=== PATIENT | male | born 1975 | race Caucasian/White ===

== ENCOUNTER → 2018-02-04 12:10 | Outpatient (CLI) | payer BC, SELFPAY ==
[2018-02-04 13:37] LABS: Hemoglobin A1C 6.2 % (0.0-7.0)
[2018-02-04 13:50] LABS: Alanine Aminotransferase 31 U/L (12-78); Albumin Level 4.1 gm/dL (3.4-5.0); Albumin/Globulin Ratio 1.3 (1.1-1.8); Alkaline Phosphatase 84 U/L (46-116); Anion Gap 9.9 mEq/L (5-15); Bilirubin,Total 0.8 mg/dL (0.2-1.0); Blood Urea Nitrogen 5 mg/dL (7-18); Calcium 9.2 mg/dL (8.5-10.1); Carbon Dioxide 32 mmol/L (21.0-32.0); Chloride 102 mmol/L (98-107); Chol/HDL Ratio 5.3 (1-3.5); Cholesterol 203 mg/dL (140-200); Estimated Glomerular Filt Rate 123 ml/min (>60); GFR (African American) 148 ML/MIN (>60); Globulin 3.1 gm/dl (1.3-3.2); Glucose 136 mg/dL (74-106); HDL Cholesterol 38 mg/dL (27-67); LDL Cholesterol 134 mg/dL (0-130); Prostate Specific Ag, Diagnost 0.77 ng/mL (0.0-4.0); Sodium 139 mmol/L (136-145); Total Protein,Serum 7.2 gm/dL (6.4-8.2); Triglycerides 154 mg/dL (30-200); VLDL Cholesterol 31 mg/dL (0-40)
[2018-02-04 13:56] LABS: Aspartate Amino Transferase 22 U/L (15-37); Potassium 4.9 mmoL/L (3.5-5.1)
== END ==
PROVIDERS: PCP Internal Medicine Adolescent Medicine; Visit Provider Internal Medicine Adolescent Medicine
DX: E11.9 Type 2 diabetes mellitus without complications (principal); N40.1 Benign prostatic hyperplasia with lower urinary tract symptoms
CPT/HCPCS: 36415; 80053; 80061; 83036; 84153

== ENCOUNTER → 2019-03-08 13:02 | Outpatient (CLI) | payer BC, SELFPAY ==
[2019-03-08 13:40] LABS: Basophils # 0.1 K/mm3 (0-0.2); Basophils % 0.6 % (0.1-2.0); Eosinophils # 0.2 K/mm3 (0.0-0.4); Hematocrit 50.3 % (42.0-52.0); Hemoglobin 16.7 g/dL (14.1-18.0); Lymphocytes # 2.6 K/mm3 (0.7-4.5); Lymphocytes % 27.8 % (10-50); Mean Corpuscular HGB Conc 33.3 g/dL (31.8-35.4); Mean Corpuscular Hemoglobin 33.7 pg (27.0-31.2); Mean Corpuscular Volume 101.3 fl (80-94); Mean Platelet Volume 8.8 fl (7.4-10.4); Monocytes # 0.6 K/mm3 (0.1-1.0); Monocytes % 6.5 % (1.7-9.3); Neutrophils # 5.8 K/mm3 (1.8-7.8); Neutrophils % 63.1 % (37.0-80.0); Platelet Count 219 K/mm3 (142-424); Red Blood Count 4.97 M/mm3 (4.60-6.20); Red Cell Distribution Width 12.2 % (11.5-17.5); White Blood Count 9.2 K/mm3 (4.8-10.8)
[2019-03-08 14:51] LABS: Hemoglobin A1C 7.3 % (0.0-7.0)
[2019-03-08 15:42] LABS: Alanine Aminotransferase 25 U/L (12-78); Albumin Level 4.3 gm/dL (3.4-5.0); Albumin/Globulin Ratio 1.5 (1.1-1.8); Alkaline Phosphatase 90 U/L (46-116); Anion Gap 13.7 mEq/L (5-15); Aspartate Amino Transferase 15 U/L (15-37); Bilirubin,Total 0.7 mg/dL (0.2-1.0); Blood Urea Nitrogen 10 mg/dL (7-18); Calcium 9.1 mg/dL (8.5-10.1); Carbon Dioxide 29 mmol/L (21.0-32.0); Chloride 102 mmol/L (98-107); Chol/HDL Ratio 4.1 (1-3.5); Cholesterol 172 mg/dL (140-200); Creatinine,Serum 0.61 mg/dL (0.70-1.30); Estimated Glomerular Filt Rate 143 ml/min (>60); GFR (African American) 173 ML/MIN (>60); Globulin 2.9 gm/dl (1.3-3.2); Glucose 136 mg/dL (74-106); HDL Cholesterol 42 mg/dL (27-67); LDL Cholesterol 105 mg/dL (0-130); Potassium 4.7 mmoL/L (3.5-5.1); Sodium 140 mmol/L (136-145); Total Protein,Serum 7.2 gm/dL (6.4-8.2); Triglycerides 123 mg/dL (30-200); VLDL Cholesterol 25 mg/dL (0-40)
[2019-03-10 08:04] LABS: Testosterone,Total 621 ng/dL (264-916)
== END ==
LOC: LAB 13:03
PROVIDERS: Visit Provider Internal Medicine Adolescent Medicine
DX: E78.5 Hyperlipidemia, unspecified (principal); E11.9 Type 2 diabetes mellitus without complications; N52.9 Male erectile dysfunction, unspecified
CPT/HCPCS: 36415; 80053; 80061; 83036; 84403; 85025

== ENCOUNTER → 2021-10-11 14:03 | Outpatient (CLI) | payer BC, SELFPAY ==
[2021-10-11 14:13] LABS: Coronavirus 19, PCR Not Detected (NotDetected); Influenza A, PCR Not Detected (NotDetected); Influenza B, PCR Not Detected (NotDetected)
== END ==
PROVIDERS: PCP Internal Medicine Adolescent Medicine; Visit Provider Surgery
DX: Z01.812 Encounter for preprocedural laboratory examination (principal); Z20.822 Contact with and (suspected) exposure to COVID-19; Z12.11 Encounter for screening for malignant neoplasm of colon
CPT/HCPCS: C9803; U0003; U0005

== ENCOUNTER 2021-10-12 08:21 | Day surgery (SDC) | payer BC, SELFPAY ==
[2021-10-10 09:48] VITALS: BMI 28.2
[2021-10-12] VITALS (7 sets, daily range): BP systolic 85–140; BP diastolic 53–88; PULSE 64–77; RESP 16–18; TEMP 36.3–36.7; O2SAT 91–100
[2021-10-12 08:47] LABS: POC Glucose,Bedside 194 (70-110)
--- NOTE | 2021-10-12 08:51 | HMH.ANESCL ---
[facility] Anesthesia Checklist - Patient Identification Patient Identification: Arm Band - Structural Data Admitted From: Home Planned Operative Procedure/s: Colonoscopy Consent for Planned Operative Procedure(s) Verified: Yes - NPO Status Verified Time NPO: 00:00 - Airway Assessment C-Spine Mobility Assessed: Yes TMJ Mobility Assessed: Yes Dentition: Edentulous - Neurological Assessment Level of Consciousness: Awake Hx Seizures: No Numbness or tingling in extremities: No - Anesthesia Plan Anesthesia Risk discussed: Yes Anesthesia Plan: Verified ASA Class: II Anesthesia Type: MAC [facility] History I have reviewed the patient's past medical history: Yes Medical History: Reports:: Diabetes Mellitus Type 2 Denies:: Cancer, Internal Pacemaker, MRSA, Seizures *Have you ever received a pneumonia vaccine?: No *Have you received a flu vaccine this season?: No Anesthesia experience/problems:: None Other Surgeries: No: Pacemaker Amputation: No - *Social History Last grade of school completed: High school graduate Smoking Status: Current every day smoker Tobacco Type: cigarettes # Packs/Day (cigarettes): 1 Alcohol Intake: never Substance Use Type: denies use *Occupational Status:: employed *Travel in the last 8 weeks: None Family Hx:: Unable to obtain
--- NOTE | 2021-10-12 09:53 | P.PCN_ITS ---
- Procedure: Date: 10/12/21 Patient Date of :: 1975 Procedure Performed:: Total colonoscopy to terminal ileum with polypectomy using snare and biopsy Indications:: 46-year-old male referred by Dr. Juni Dietz for initial screening colonoscopy Performing Provider:: Lance Reeder MD Referring Provider:: Juni Dietz MD Sedation:: MAC sedation Procedure:: Patient was taken to endoscopy procedure room. He was positioned in lateral decubitus position. Adequate intravenous sedation was achieved with anesthesia titration of propofol. Digital examination was performed which revealed normal sphincter tone. He had a uniformly enlarged prostate. Variable stiffness Olympus colonoscope was inserted via the anus. It was advanced to the cecum. Colonic preparation was fair as there was liquid stool throughout the colon. Adequate visualization was achieved with thorough irrigation and suctioning. Ileocecal valve and appendiceal orifice were clearly identified. Colonoscope was advanced a short distance into the terminal ileum which appeared grossly normal. Colonoscope was slowly withdrawn through the colon with careful surveillance. Thorough irrigation and suctioning was performed due to poor preparation. In the ascending colon there was a moderate polyp removed with cold cutting snare. Near the splenic flexure there was some focal erythema which was biopsied. Likely inconsequential. In the descending colon he had a couple of tiny polyps 1 removed with biopsy forceps and 1 with cold snare. The rectosigmoid region there was a hyperplastic appearing polyp removed with cold snare. In the rectum there were several diminutive polyps 2 of which were removed with cold snare and 1 removed with biopsy forceps. Retroflexion revealed nonbleeding prolapsing internal hemorrhoids. Colonoscope was withdrawn. Findings:: He had 7 polyps. Most of these appeared small and diminutive likely hyperpl astic. Most notable polyp was the ascending colon polyp. Fair colonic preparation Focal small area of mucosal erythema at the splenic flexure, biopsied, likely inconsequential Prolapsing nonbleeding hemorrhoids Recommendations:: Likely repeat colonoscopy 3 years pending pathology due to findings and fair preparation Complications:: None immediately apparent Estimated blood obtained (mL): 2
== END 2021-10-12 10:35 | disposition home or self-care (01) ==
LOC: OUTP 08:22
PROVIDERS: PCP Internal Medicine Adolescent Medicine; Visit Provider Surgery
PROC: 0DJD8ZZ Inspection of Lower Intestinal Tract, Via Natural or Artificial Opening Endoscopic (ICD-10-PCS; CPT 45385; principal; 2021-10-12 09:30)
DX: Z12.11 Encounter for screening for malignant neoplasm of colon (principal); E11.9 Type 2 diabetes mellitus without complications; Z72.0 Tobacco use; Z79.84 Long term (current) use of oral hypoglycemic drugs; Z79.899 Other long term (current) drug therapy
CPT/HCPCS: 45385; 45380; 82962

== ENCOUNTER 2025-04-07 09:27 | Day surgery (SDC) | payer BC, SELFPAY ==
--- NOTE | 2025-04-03 11:09 | P.HP_ITS ---
History of Present Illness *Admission Date: 04/07/25 *History of present illness: Mr. Whitney is a 49-year-old gentleman who is here for screening/surveillance colonoscopy secondary to a personal history of adenomatous colon polyps. The patient did have a colonoscopy in October 2021 (Lance Reeder MD) and had 7 colon polyps (tubular adenomas x 3/hyperplastic polyps x 4) removed. The examination is deemed medically necessary for screening/surveillance colonoscopy. The patient has been seen, interviewed and examined prior to the procedure by both myself and the anesthesia provider. [facility] Disclaimer: The information contained in this section may have been updated after the patient was seen, as this information can be updated by other users. Medical History (Updated 04/07/25 @ 10:59 by Nelida Moore) High cholesterol Depression Diabetes Family History (Updated 04/07/25 @ 11:00 by Nelida Moore) Other No significant family history Social History (Updated 04/07/25 @ 11:00 by Nelida Moore) Smoking Status: Current every day smoker tobacco type: cigarettes packs per day: 1 alcohol intake: never substance use type: denies use current occupational status: employed Travel in the last 8 weeks?: None caffeine: Yes Have you lived/traveled outside US in past 30 days?: No Contact w/someone who lives/traveled outside US past 30 days?: No Exposure to someone with infectious disease in past 14 days?: No Do you have a fever (greater than 100.4 F or 38 C)?: No Have you tested positive for COVID-19?: No Exposed to someone with COVID-19 in past 14 days?: No Do you have a sore throat?: No Do you have a cough?: No Do you have any weakness?: No Are you experiencing any nausea/vomitting?: No Do you have any diarrhea?: No Are you experiencing any unusual bleeding?: No Do you have any muscle aches/pain?: No Do you have any abdominal pain?: No Are you experiencing loss of taste or smell?: No Other Medical History Have you received the Flu Vaccine for this season: No Have you received the Pneumonia Vaccine: No Review of Systems Review of Systems Review of systems (narrative): Negative *Cardiovascular Comments: Negative *Gastrointestinal Comments: Negative *Genitourinary Comments: Negative *Musculoskeletal Comments: Negative *Neurologic Comments: Negative Meds Home Medications and Allergies Home Medications ?Medication ?Instructions ?Recorded ?Confirmed ?Type metformin 1,000 mg tablet 1,000 mg PO DAILY Diabetes 0 10/10/21 04/07/25 History escitalopram oxalate 20 mg tablet 20 mg PO DAILY Depre ssion 10/12/21 04/07/25 History sodium,potassium,mag sulfates 17.5 See Rx Instructions PO .COMPLEX 03/21/25 Rx gram-3.13 gram-1.6 gram oral soln #354 mL (Suprep Bowel Prep Kit) New Prescriptions to Start Prescriptions: Allergies Allergy/AdvReac Type Severity Reaction Status Date / Time No Known Allergies Allergy Verified 10/12/21 08:32 Exam *Routine HEENT Exam Head: Present normocephalic Eye: Present EOMI and PERRL ENT: Present mucous membranes moist *Routine Neck Exam Neck: Present supple *Routine Respiratory Exam Respiratory: Present CTA bilaterally *Routine Cardiovascular Exam Cardiovascular: Present RRR *Routine Abdominal Exam Abdominal: Present soft and normoactive bowel sounds; Absent tenderness *Routine Rectal Exam Rectal:: deferred *Routine Genitalia Exam Genitalia:: deferred *Routine Extremities Exam Extremities: Absent cyanosis, clubbing or edema *Routine Skin Exam Skin: Present warm; Absent rash *Routine Neurological Exam Neurological: Present alert and oriented X3 Assessment and Plan *Assessment and plan (1) Personal history of adenomatous and serrated colon polyps: Status: Acute Category: Medical Code(s): Z86.0101 - Personal history of adenomatous and serrated colon polyps (2) Screening for colon cancer: Status: Acute Category: Medical Code(s): Z12.11 - Encounter for screening for malignant neoplasm of colon Plan A/P: 1. Personal history of adenomatous colon polyps is the preprocedural diagnosis. The patient will be anesthetized/sedated using MAC sedation. The patient has been seen and examined. Cardiac and lung assessment prior to the examination is stable. Proceed with planned screening/surveillance colonoscopy.
--- NOTE | 2025-04-05 10:19 | SUR.PREOP ---
attempted to call pt, no answer and no voicemail setup at this time
--- NOTE | 2025-04-07 06:48 | HMH.PROCNOTE ---
[facility] Procedure Note Date: 04/07/25 Time: 12:07 Procedure Note:: Colonoscopy Procedure Report: Colonoscopy with cold snare polypectomy Endoscopist: Montrell Taylor II, MD Referring physician: Juni Dietz M.D. Date of Procedure: April 07, 2025 Equipment: Olympus [id number] adult colonoscope Sedation: MAC sedation Indication: Mr. Whitney is a 49-year-old gentleman who is here for screening/surveillance colonoscopy secondary to a personal history of adenomatous colon polyps. The patient did have a colonoscopy in October 2021 (Lance Reeder MD) and had 7 colon polyps (tubular adenomas x 3/hyperplastic polyps x 4) removed. The patient reports no abdominal pain, weight loss, change in his bowel habits or rectal bleeding. He reports no family history of colon cancer. The examination is deemed medically necessary for screening/surveillance colonoscopy. Procedure: Prior to the procedure, a history and physical exam was performed, and patient's medications and allergies were reviewed. The risks, benefits and alternatives of the sedation and procedure were discussed with the patient. All questions were answered and informed consent was obtained. The patient was brought to the procedure room. Patient identification and proposed procedure were verified by the physician and the nurse. The patient was placed in a left lateral decubitus position and the scope was passed under direct vision. Throughout the procedure, the patient's blood pressure, pulse, and oxygen saturations were monitored continuously. The colonoscopy was accomplished without difficulty. The patient tolerated the procedure well. Findings: On digital rectal examination there was normal rectal tone. There were no external hemorrhoids. The prostate was 2+, smooth, soft, symmetric without nodules. The colonoscope was introduced through the anal canal to the rectum and advanced to the cecum. The ileocecal valve and appendiceal orifice were identified. The scope was advanced a short distance into the ileum which appeared grossly normal. The scope was then withdrawn into the colon. There were 2 polyps (descending x 1 (7 mm) and rectal x 1 (4 mm)). These were both removed via cold snare polypectomy. The remaining cecum, ascending, transverse, descending, sigmoid and rectum were grossly normal. There were no other mucosal abnormalities identified. Upon retroflexion within the rectum there were grade 2 internal hemorrhoids. The preparation was good throughout with [place] Preparation Score of 8 out of 9. The cecal time was 12 minutes. Impression: 1. Colonic polyps x 2 (4 and 7 mm) 2. Grade 2 internal hemorrhoids Plan: I will follow-up the polyp histology and recommend repeat screening/surveillance colonoscopy again in 7 years. I would encourage psyllium bulking fiber supplementation on a long-term daily maintenance basis.
--- NOTE | 2025-04-07 10:55 | EXP.ANES.CKL ---
[facility] Disclaimer: The information contained in this section may have been updated after the patient was seen, as this information can be updated by other users. Social History Smoking Status: Current every day smoker tobacco type: cigarettes packs per day: 1 alcohol intake: never substance use type: denies use current occupational status: employed Travel in the last 8 weeks?: None caffeine: Yes Have you lived/traveled outside [place] in past 30 days?: No Contact w/someone who lives/traveled outside US past 30 days?: No Exposure to someone with infectious disease in past 14 days?: No Do you have a fever (greater than 100.4 F or 38 C)?: No Have you tested positive for COVID-19?: No Exposed to someone with COVID-19 in past 14 days?: No Do you have a sore throat?: No Do you have a cough?: No Do you have any weakness?: No Do you have any diarrhea?: No Are you experiencing any unusual bleeding?: No Do you have any muscle aches/pain?: No Do you have any abdominal pain?: No Are you experiencing loss of taste or smell?: No [facility] Anesthesia Checklist Patient Identification Patient Identification: Arm Band and Verbal (Name & ) Structural Data Admitted From: Home Planned Operative Procedure/s: Colonoscopy Consent for Planned Operative Procedure(s) Verified: Yes Verified Documents: Surgical Consent NPO Status Verified Time NPO: 00:00 Additional verifications Anesthesia Reactions: No Airway Assessment Mallampati Score:: Class II C-Spine Mobility Assessed: Yes TMJ Mobility Assessed: Yes Dentition: Dentures-poor fitting Neurological Assessment Level of Consciousness: Awake, Alert and Appropriate Hx Seizures: No Numbness or tingling in extremities: No Anesthesia Plan Anesthesia Risk discussed: Yes Anesthesia Plan: Verified ASA Class: II Anesthesia Type: MAC
[2025-04-07 10:57] VITALS: BMI 29.0
[2025-04-07 11:01] VITALS: BP 149/79; PULSE 73; RESP 16; TEMP 36.3; O2SAT 97
[2025-04-07] MEDS: LACTATED RINGERS 1000ML 1,000 ML 50 ML IV (11:06)
[2025-04-07 11:13] LABS: POC Glucose,Bedside 244 gm/dL (70-110)
[2025-04-07 12:11] VITALS: BP 85/56; PULSE 74; RESP 18; TEMP 36.3; O2SAT 97
[2025-04-07 12:20] VITALS: BP 123/86; PULSE 73; RESP 18; O2SAT 92
[2025-04-07 12:30] VITALS: BP 132/75; PULSE 72; RESP 18; O2SAT 100
[2025-04-07 12:45] VITALS: BP 126/72; PULSE 74; RESP 18; O2SAT 100
== END 2025-04-07 12:45 | disposition home or self-care (01) ==
PROVIDERS: PCP Internal Medicine Adolescent Medicine; Visit Provider Internal Medicine Gastroenterology
PROC: 0DJD8ZZ Inspection of Lower Intestinal Tract, Via Natural or Artificial Opening Endoscopic (ICD-10-PCS; CPT 45378; principal; 2025-04-07 11:00)
DX: Z12.11 Encounter for screening for malignant neoplasm of colon (principal); D12.4 Benign neoplasm of descending colon; K62.1 Rectal polyp; Z86.0101 Personal history of adenomatous and serrated colon polyps; Z86.0102 Personal history of hyperplastic colon polyps; K64.1 Second degree hemorrhoids; F17.210 Nicotine dependence, cigarettes, uncomplicated; E11.9 Type 2 diabetes mellitus without complications; Z79.84 Long term (current) use of oral hypoglycemic drugs
CPT/HCPCS: 45385; 82962; J2003; J2704; J7120